=== PATIENT | female | born 1990 | race African-American/Black ===

== ENCOUNTER 2022-07-25 14:07 | Emergency (ER) | payer MEDICAID ==
[~2022-07-25] VITALS: Ht 160 cm; Wt 54.0 kg
[2022-07-25 14:22] VITALS: BP 96/49
[2022-07-25 14:42] LABS: BASOPHILS % 0.6 % (0.0-2.0); EOSINOPHILS % 1.1 % (0.0-5.0); HEMATOCRIT. 44.1 % (36.0-48.0); HEMOGLOBIN. 14.5 g/dL (12.0-16.0); LYMPHOCYTES % 30.1 % (20.0-50.0); MEAN CORPUSCULAR HEMOGLOBIN 27.3 pg (28.0-32.0); MEAN CORPUSCULAR VOLUME 83.2 fL (81.0-99.0); MEAN PLATELET VOLUME 10.1 fl (7.4-10.4); MONOCYTES % 9.3 % (2.0-8.0); NEUTROPHILS % 58.9 % (40.0-76.0); PLATELET 234 x1000/uL (130-400); RED CELL DISTRIBUTION WIDTH 16.2 % (11.6-14.6)
[2022-07-25 14:50] LABS: CHLORIDE 103 mEq/L (98-107)
[2022-07-25 15:05] LABS: HCG SCREEN POSITIVE
[2022-07-25] MEDS ORDERED: ONDANSETRON 4MG ODT PO ONE (16:00)
[2022-07-25] MEDS ORDERED: SODIUM CHLORIDE 0.9% 1,000 ML IV ONE (16:45)
[2022-07-25] MEDS ORDERED: ONDANSETRON HCL 4MG/2ML INJ IV ONE (18:30)
[2022-07-25 19:07] LABS: COLOR URINE DARK YELLOW (YELLOW)
[2022-07-25 19:08] LABS: CLARITY URINE CLEAR (CLEAR); PH URINE 8.5 (4.5-8.0); SPECIFIC GRAVITY URINE 1.032 (1.005-1.030)
[2022-07-25 19:09] LABS: KETONES URINE 3+ (NEGATIVE); PROTEIN URINE TRACE (NEGATIVE)
[2022-07-25 19:10] LABS: LEUKOCYTE ESTERASE URINE TRACE (NEGATIVE); NITRITE URINE NEGATIVE (NEGATIVE); OCCULT BLOOD URINE NEGATIVE (NEGATIVE)
[2022-07-25] MEDS ORDERED: NITR-87 MT (19:13)
[2022-07-25] MEDS ORDERED: ONDA4TAB50 MT (19:13)
== END 2022-07-25 20:19 | disposition home or self-care (01) ==
LOC: ER 14:19
DX: O21.9 Vomiting of pregnancy, unspecified (principal); Z3A.01 Less than 8 weeks gestation of pregnancy
CPT/HCPCS: 36415; 76801; 76817; 80053; 81003; 81025; 84702; 84703; 85025; 96361; 96374; 99285; J2405; J7030; Q0162